=== PATIENT | female | born 1995 | race Caucasian/White ===

== ENCOUNTER 2020-06-14 10:18 | Emergency (ER) | payer OTHER ==
[~2020-06-14] VITALS: Ht 167.6 cm; Wt 96.3 kg
[2020-06-14] MEDS ORDERED: ONDA4TAB6 PO (10:32)
[2020-06-14] MEDS ORDERED: LOPE1CAP5 PO (10:32)
[2020-06-14 11:36] LABS: BASO % 0.4 % (0.0-1.0); EOS # 0.1 10^3/uL (0.0-0.5); EOS % 2.8 % (0.0-3.0); HEMOGLOBIN 12.1 g/dl (12.0-15.5); LYMPH % 19.8 % (24.0-44.0); MEAN CORPUSCULAR HEMOGLOBIN 29.5 pg (27.0-33.0); MEAN CORPUSCULAR HGB CONC 31.8 g/dl (32.0-36.5); MEAN CORPUSCULAR VOLUME 92.7 fl (80.0-96.0); MONO # 0.4 10^3/uL (0.0-0.8); MONO % 7.3 % (0.0-5.0); NEUTROPHILS # 3.4 10^3/uL (1.5-8.5); NEUTROPHILS % 69.3 % (36.0-66.0); PLATELET COUNT, AUTOMATED 183 10^3/uL (150-450)
[2020-06-14] MEDS ORDERED: ISOVUE-370 76% 100ML VIAL As Ordered ONE (11:57)
[2020-06-14] MEDS ORDERED: ONDANSETRON 4MG/2ML VIAL IV ONE (12:00)
[2020-06-14 12:02] LABS: ALBUMIN 3.4 GM/DL (3.2-5.2); ALT/SGPT 15 U/L (12-78); BILIRUBIN,DIRECT < 0.1 MG/DL (0.0-0.2); BILIRUBIN,TOTAL 0.2 MG/DL (0.2-1.0); LIPASE 54 U/L (73-393); TOTAL PROTEIN 7.3 GM/DL (6.4-8.2)
--- NOTE | 2020-06-14 12:22 | REPVR ---
PROCEDURE INFORMATION: Exam: CT Abdomen And Pelvis With Contrast Exam date and time: 06/14/2020 12:04 PM Age: 25 years old Clinical indication: Abdominal pain; Localized; Right lower quadrant (rlq); Additional info: Rlq pain TECHNIQUE: Imaging protocol: Computed tomography of the abdomen and pelvis with intravenous contrast. Radiation optimization: All CT scans at this facility use at least one of these dose optimization techniques: automated exposure control; mA and/or kV adjustment per patient size (includes targeted exams where dose is matched to clinical indication); or iterative reconstruction. Contrast material: ISOVUE 370; Contrast volume: 100 ml; Contrast route: INTRAVENOUS (IV); COMPARISON: No relevant prior studies available. FINDINGS: Lungs: 4 mm noncalcified left lower lobe pulmonary nodule (series 201, image 7). Liver: Normal. No mass. Gallbladder and bile ducts: Normal. No calcified stones. No ductal dilation. Pancreas: Normal. No ductal dilation. Spleen: Normal. No splenomegaly. Adrenals: Normal. No mass. Kidneys and ureters: Normal. No hydronephrosis. Stomach and bowel: Unremarkable. No obstruction. No mucosal thickening. Appendix: No evidence of appendicitis. Intraperitoneal space: Unremarkable. No free air. No significant fluid collection. Vasculature: Unremarkable. No abdominal aortic aneurysm. Lymph nodes: Unremarkable. No enlarged lymph nodes. Urinary bladder: Unremarkable as visualized. Reproductive: 2.9 cm simple physiologic right ovarian cyst. Bones/joints: Unremarkable. No acute fracture. Soft tissues: Unremarkable. IMPRESSION: 1. No acute abnormality is identified within the abdomen/pelvis. 2. Physiologic right ovarian cyst, which warrants no follow-up imaging. 3. 4 mm noncalcified left lower lobe pulmonary nodule. If the patient does not have known cancer, follow up should be based on clinical information because of the low risk of cancer in this age group. (Reference: Dino) REFERENCES: Dino H, et al. Guidelines for Management of Incidental Pulmonary Nodules Detected on CT Images: From the Fleischner Society 2017. Radiology. 2017;284(1):228-243. Electronically signed by: Pam Sevilla On 06/14/2020 12:22:07 PM
[2020-06-14] MEDS ORDERED: POTASSIUM CHLORIDE 10 MEQ SR TABLET PO ONE (13:00)
[2020-06-14] MEDS ORDERED: NS 1,000 ML IV ONE (13:00)
[2020-06-14 15:08] VITALS: BP 130/75
--- NOTE | 2020-06-14 19:44 | ED PDOC ---
Post-Departure Follow-Up ft marissa hammond faxed formal report of ct abd/p for fu Juvenal Dey MD Jun 14, 2020 19:44
== END 2020-06-14 15:09 | disposition home or self-care (01) ==
LOC: M ED 10:18
DX: R91.1 Solitary pulmonary nodule (principal); N83.201 Unspecified ovarian cyst, right side; E87.6 Hypokalemia
CPT/HCPCS: 74177; 80047; 80076; 81001; 83690; 84702; 85025; 96361; 96374; 99284; J2405; Q9967

== ENCOUNTER 2020-06-20 23:18 | Emergency (ER) | payer OTHER ==
[~2020-06-20] VITALS: Ht 167.6 cm; Wt 90.9 kg
[~2020-06-20 23:18] MED LIST: LOPE1CAP5 PO; ONDA4TAB6 PO
[2020-06-21] MEDS ORDERED: IBUPROFEN 600MG TAB PO ONE (02:15)
[2020-06-21] MEDS ORDERED: MORPHINE 4 MG/ML 1ML VIAL/SYRINGE (J2270) IV ONE (02:15)
[2020-06-21] MEDS ORDERED: METOCLOPRAMIDE INJ 10MG/2ML VIAL (J2765 PER 1) IV ONE (02:15)
[2020-06-21] MEDS ORDERED: ACETAMINOPHEN 325 MG TAB PO ONE (02:15)
[2020-06-21 02:32] LABS: BASO # 0.1 10^3/uL (0.0-0.2); BASO % 0.8 % (0.0-1.0); EOS # 0.3 10^3/uL (0.0-0.5); EOS % 3.4 % (0.0-3.0); HEMATOCRIT 37.6 % (36.0-47.0); HEMOGLOBIN 11.9 g/dl (12.0-15.5); LYMPH # 2.4 10^3/uL (1.5-5.0); LYMPH % 33.1 % (24.0-44.0); MEAN CORPUSCULAR HEMOGLOBIN 29.5 pg (27.0-33.0); MEAN CORPUSCULAR HGB CONC 31.6 g/dl (32.0-36.5); MEAN CORPUSCULAR VOLUME 93.1 fl (80.0-96.0); MONO # 0.5 10^3/uL (0.0-0.8); MONO % 6.6 % (0.0-5.0); NEUTROPHILS # 4.1 10^3/uL (1.5-8.5); NEUTROPHILS % 55.8 % (36.0-66.0); PLATELET COUNT, AUTOMATED 227 10^3/uL (150-450); RED BLOOD COUNT 4.04 10^6/uL (4.00-5.40); WHITE BLOOD COUNT 7.4 10^3/uL (4.0-10.0)
[2020-06-21 03:01] LABS: ALBUMIN 3.8 GM/DL (3.2-5.2); ALT/SGPT 24 U/L (12-78); BILIRUBIN,DIRECT < 0.1 MG/DL (0.0-0.2); BILIRUBIN,TOTAL 0.3 MG/DL (0.2-1.0); LIPASE 33 U/L (73-393); TOTAL PROTEIN 7.4 GM/DL (6.4-8.2)
[2020-06-21 04:33] LABS: BLOOD UREA NITROGEN 9 MG/DL (7-18); CALCIUM LEVEL 8.6 MG/DL (8.5-10.1); CARBON DIOXIDE LEVEL 26 MEQ/L (21-32); CHLORIDE LEVEL 107 MEQ/L (98-107); CREATININE FOR GFR 0.75 MG/DL (0.55-1.30); GLOMERULAR FILTRATION RATE > 60.0 (>60); GLUCOSE, FASTING 84 MG/DL (70-100); HCG, SERUM QUALITATIVE NEGATIVE (NEGATIVE); POTASSIUM SERUM 3.7 MEQ/L (3.5-5.1); SODIUM LEVEL 139 MEQ/L (136-145)
[2020-06-21 05:15] VITALS: BP 141/66
== END 2020-06-21 05:29 | disposition home or self-care (01) ==
LOC: M ED 23:18
DX: R10.31 Right lower quadrant pain (principal); R11.0 Nausea; F17.290 Nicotine dependence, other tobacco product, uncomplicated
CPT/HCPCS: 80048; 80076; 83690; 84703; 85025; 96374; 96375; 99284; J2270; J2765

== ENCOUNTER 2020-06-22 23:12 | Emergency (ER) | payer OTHER ==
[~2020-06-22] VITALS: Ht 167.6 cm; Wt 90.9 kg
[2020-06-23] MEDS ORDERED: KETOROLAC 30 MG/ML 1ML VIAL IV ONE
[2020-06-23 00:40] LABS: BASO # 0.1 10^3/uL (0.0-0.2); BASO % 0.8 % (0.0-1.0); EOS # 0.2 10^3/uL (0.0-0.5); EOS % 3.3 % (0.0-3.0); HEMATOCRIT 37.6 % (36.0-47.0); HEMOGLOBIN 12.1 g/dl (12.0-15.5); LYMPH # 2.4 10^3/uL (1.5-5.0); LYMPH % 36.4 % (24.0-44.0); MEAN CORPUSCULAR HEMOGLOBIN 30.1 pg (27.0-33.0); MEAN CORPUSCULAR HGB CONC 32.2 g/dl (32.0-36.5); MEAN CORPUSCULAR VOLUME 93.5 fl (80.0-96.0); MONO # 0.6 10^3/uL (0.0-0.8); MONO % 8.3 % (0.0-5.0); NEUTROPHILS # 3.4 10^3/uL (1.5-8.5); PLATELET COUNT, AUTOMATED 241 10^3/uL (150-450); RED BLOOD COUNT 4.02 10^6/uL (4.00-5.40); WHITE BLOOD COUNT 6.6 10^3/uL (4.0-10.0)
[2020-06-23 00:54] LABS: ALBUMIN 3.6 GM/DL (3.2-5.2); ALT/SGPT 22 U/L (12-78); BILIRUBIN,DIRECT < 0.1 MG/DL (0.0-0.2); BILIRUBIN,TOTAL 0.3 MG/DL (0.2-1.0); LIPASE 36 U/L (73-393); TOTAL PROTEIN 7.4 GM/DL (6.4-8.2)
--- NOTE | 2020-06-23 01:17 | REPVR ---
PROCEDURE INFORMATION: Exam: US Nonobstetric Pelvis; Complete Exam date and time: 06/23/2020 12:45 AM Age: 25 years old Clinical indication: Pelvic pain; Additional info: R ovarian cyst, pain worsening TECHNIQUE: Imaging protocol: Transabdominal pelvic nonobstetric ultrasound. Complete exam. Real time ultrasound with image documentation. COMPARISON: CT ABD/PEL W/IV CONTRAST ONLY 06/14/2020 11:56 AM FINDINGS: Uterus/cervix: Uterus measures 7.1 x 2.8 x 4.2 cm. Endometrium measures 5.5 mm. No focal abnormality involving the uterus. Right adnexa: Right ovary measures 4.1 x 2.6 x 2.5 cm. Simple cyst involving the right ovary measures 2.6 x 2.1 x 1.9 cm. No evidence of right ovarian torsion. Left adnexa: Left ovary measures 2.8 x 1.4 x 1.2 cm. Left ovary appears within normal limits without torsion. Intraperitoneal space: No intraperitoneal free fluid. Bladder: Normal. IMPRESSION: 1. No acute abnormality. 2. Right ovarian cyst measures 2.6 cm. Electronically signed by: Collin Caraballo On 06/23/2020 01:17:26 AM
[2020-06-23 01:30] VITALS: BP 125/64
== END 2020-06-23 01:41 | disposition home or self-care (01) ==
LOC: M ED 23:12
DX: N83.201 Unspecified ovarian cyst, right side (principal)
CPT/HCPCS: 76856; 80047; 80076; 81001; 83690; 85025; 87086; 96374; 99284; J1885